=== PATIENT | female | born 1955 | race Caucasian/White ===

== ENCOUNTER 2018-04-21 12:08 | Day surgery (SDC) | payer MEDICARE, BC ==
[~2018-04-21] VITALS: Ht 167.6 cm; Wt 143.8 kg
[~2018-04-21 12:08] MED LIST: ACET325; ACET325 PO; ACYC200; ACYC200 PO; ASPI81CH; ASPI81CH PO; ATOR80; ATOR80 PO; CALCA500CH; Calcium + Vita1 EACH PO; Cardizem LA360 MG; DILT120ERA PO; DOCU100; DOCU100 PO; ENOX40I SC; ERGO400 PO; FURO20 PO; HYDCHL12.5; HYDR1TAB94 PO; Humulin N100 UNIT/1; LOSA50 PO; Lisinopril2.5 MG; MAGNESIUM PO; MAGOXI400; METCAR500 PO; METCAR750; METF500 PO; MYRBETRIQ50 MG; MYRBETRIQ50 MG PO; Metformin HCl500 M1; NAPR220; NEBI10; NEBI10 PO; Novolog100 UNIT/2 SC; PROBIOTIC1 EAC3 PO; Percocet 5-3251 EACH PO; TRAM50; TRAM50 PO; TRESIBA FL100 UNIT/1 SC; VENL75ER; VENL75ER PO; Wellbutrin Sr200 MG; Wellbutrin Sr200 MG PO
== END 2018-04-21 15:45 | disposition home or self-care (01) ==
LOC: ORSCMMR 12:08
PROVIDERS: Internal Medicine Gastroenterology
PROC: 0DBP8ZX Excision of Rectum, Via Natural or Artificial Opening Endoscopic, Diagnostic (ICD-10-PCS; principal; 2018-04-21 13:30)
PROC: 0DBM8ZX Excision of Descending Colon, Via Natural or Artificial Opening Endoscopic, Diagnostic (ICD-10-PCS; principal; 2018-04-21 13:30)
DX: Z12.11 Encounter for screening for malignant neoplasm of colon (principal); K63.5 Polyp of colon; K62.1 Rectal polyp; K64.8 Other hemorrhoids; I10 Essential (primary) hypertension; E11.9 Type 2 diabetes mellitus without complications; J44.9 Chronic obstructive pulmonary disease, unspecified; G47.33 Obstructive sleep apnea (adult) (pediatric); Z79.899 Other long term (current) drug therapy
CPT/HCPCS: 71046; 82947; 88305; J2405; J7030

== ENCOUNTER → 2020-08-28 | Outpatient (CLI) | payer MEDICARE, BC ==
[2020-08-29 14:10] LABS: HPV 16 Negative (Negative); HPV 18 Negative (Negative); HPV OTHER HR TYPES Negative (Negative)
== END ==
LOC: LAB 14:45 → LAB SHORT 14:45
PROVIDERS: Obstetrics & Gynecology
DX: Z01.419 Encounter for gynecological examination (general) (routine) without abnormal findings (principal)
CPT/HCPCS: 87624; G0123

== ENCOUNTER → 2021-09-25 | Outpatient (CLI) | payer MEDICARE, BC ==
[2021-09-25 17:35] LABS: Appearance, Urine Hazy (Clear); Bilirubin, Urine Neg (Neg); Blood, Urine Neg (Neg); Color, Urine Yellow (P-Yellow); Glucose Qualitative, Urine Neg (Neg); Ketones, Urine Neg (Neg); Leukocyte Esterase, Urine 1+ (Neg); Nitrite, Urine Neg (Neg); Protein, Urine 2+ (Neg); Specific Gravity, Urine 1.015 (1.003-1.022); Urobilinogen, Urine NORM (Normal)
[2021-09-25 17:44] LABS: White Blood Cells, Urine 25-50 /hpf (0-5)
[2021-09-25 17:45] LABS: Bacteria Mod /hpf; Red Blood Cells, Urine 0-2 /hpf (0-2); Squamous Epithelial Cells Mod /hpf (Few)
[2021-09-25 18:12] LABS: Protein, Urine Random 51.5 mg/dL (0.0-11.9)
[2021-09-25 18:50] LABS: Creatinine, Urine Random 89.4 mg/dL (27.00-270.00); Protein/Creat Ratio, Ur Random 0.6
== END | disposition home or self-care (01) ==
LOC: LAB 14:45 → LAB SHORT 14:45
PROVIDERS: Internal Medicine
DX: N18.32 Chronic kidney disease, stage 3b (principal)
CPT/HCPCS: 81001; 82570; 84156

== ENCOUNTER 2024-05-10 09:06 | Day surgery (SDC) | payer MEDICARE, BC ==
[2024-05-10] VITALS (9 sets, daily range): BP systolic 93–178; BP diastolic 63–89
[~2024-05-10] VITALS: Ht 167.6 cm; Wt 134.0 kg
[2024-05-10] MEDS ORDERED: LOSARTAN-HCTZ1 EAC3 PO (09:56)
[2024-05-10] MEDS ORDERED: TRESIBA FL100 UNIT/2 SC (09:59)
[2024-05-10] MEDS ORDERED: Heparin Sodium 1000 Units/ML 10ML MDV ONE ×2 (10:21→12:26)
[2024-05-10] MEDS ORDERED: NS 1,000 ML IV ONE ×2 (10:21→12:27)
[2024-05-10] MEDS ORDERED: NS 250 ML IV ONE (10:21)
[2024-05-10] MEDS ORDERED: Midazolam HCl 1MG / ML 2ML Vial ONE (12:34)
[2024-05-10] MEDS ORDERED: FentaNYL Citrate 50 MCG/ML 2 ML Injection ONE (12:34)
--- NOTE | 2024-05-10 14:57 | NUR ---
PT RETURNS TO RECOVERY ROOM. ALERT AND ORIENTED. LAYING IN SUPINE POSITION. RIGHT GROIN ASSESSED WITH TECH. WNL, NO OOZING NO HEMATOMA. SOFT, SLIGHTLY TENDER TO TOUCH. REFRESHMENTS PROVIDED. VSS. PT. UPDATED PER PT REQUEST. CALL LIGHT IN REACH.
--- NOTE | 2024-05-10 15:23 | NUR ---
PT REMAINS SUPINE, SITE REMAINS WNL, UNCHANGED FROM PREVIOUS ASSESSMENTS. PT. REQUESTING TO VOID, PUREWICK PLACED, PT VOIDED 350CC OF CLEAR URINE. RESTING COMFORTABLY IN BED, CALL LIGHT IN REACH.
--- NOTE | 2024-05-10 16:14 | NUR ---
pt hob elevated to 30 degrees. snacks provided. site remains unchanged from previous assessment after sitting up in bed.
--- NOTE | 2024-05-10 17:10 | NUR ---
PT DANGLED AT BEDSIDE, SITE CHECKED AFTER DANGLING AND REMAINS UNCHANGED FROM PREVIOUS ASSESSMENT. DISCHARGE INSTRUCTIONS REVIEWED IN DETAIL. PT VSS REMAIN STABLE. PT TO DRIVE PT HOME. PT TO BATHROOM TO VOID PRIOR TO DEPARTURE. IV REMOVED CATHETER INTACT. PT. HAD NO FURTHER QUESTIONS. METFORMIN DOSE TO BE HELD X 2 DAYS. PT VERBALIZED UNDERSTANDING. PT YUDI TO DRIVE PT HOME.
== END 2024-05-10 22:35 | disposition home or self-care (01) ==
LOC: MHTC 09:06
DX: I70.1 Atherosclerosis of renal artery (principal); I65.21 Occlusion and stenosis of right carotid artery; I87.2 Venous insufficiency (chronic) (peripheral); K55.1 Chronic vascular disorders of intestine; E11.51 Type 2 diabetes mellitus with diabetic peripheral angiopathy without gangrene; I12.9 Hypertensive chronic kidney disease with stage 1 through stage 4 chronic kidney disease, or unspecified chronic kidney disease; E11.22 Type 2 diabetes mellitus with diabetic chronic kidney disease; N18.31 Chronic kidney disease, stage 3a; F17.200 Nicotine dependence, unspecified, uncomplicated; Z88.0 Allergy status to penicillin; Z88.5 Allergy status to narcotic agent; Z91.030 Bee allergy status; Z91.048 Other nonmedicinal substance allergy status
CPT/HCPCS: 76937; 82947; 99152; 99153; C1760; C1769; C1887; C1894; J1644; J2250; J3010; J7030; J7050; Q9967